=== PATIENT | male | born 1985 | race Caucasian/White ===

== ENCOUNTER 2022-02-24 19:44 | Emergency (ER) | payer MEDICAID ==
[~2022-02-24] VITALS: Ht 182.9 cm; Wt 100.0 kg
[2022-02-24 22:15] VITALS: BP 121/79
== END 2022-02-24 22:16 | disposition home or self-care (01) ==
LOC: ER 19:44
DX: T40.411A Poisoning by fentanyl or fentanyl analogs, accidental (unintentional), initial encounter (principal); E11.9 Type 2 diabetes mellitus without complications; I10 Essential (primary) hypertension; Y92.9 Unspecified place or not applicable
CPT/HCPCS: 99283